=== PATIENT | male | born 1965 | race Caucasian/White ===

== ENCOUNTER 2017-11-06 08:07 | Emergency (ER) | payer BC ==
--- NOTE | 2017-11-06 08:13 | EDM.PDOC ---
ED HPI GENERAL MEDICAL PROBLEM - General Chief Complaint: Abdominal Pain Stated Complaint: BY AMBULANCE Time Seen by Provider: 11/06/17 08:13 Source of Information: Reports: Patient, EMS, EMS Notes Reviewed, RN, RN Notes Reviewed History Limitations: Reports: No Limitations - History of Present Illness INITIAL COMMENTS - FREE TEXT/NARRATIVE: Pt presents to ER per [facility] with c/o abdominal pain. He states last week one of his dogs jumped on his abdomen and he had pain. Today at 0715 one of his dogs, approximately 45#, jumped up and pounced with both paws on the right side of his abdomen. He points in a [place] around the umbilicus when asked where the pain is. He admits to some nausea with the pain. He describes the pain as a "pressure. Onset: Today, Sudden Onset Time: 15:00 Duration: Constant Location: Reports: Abdomen Quality: Reports: Pressure Severity: Moderate Improves with: Reports: Rest Worsens with: Reports: Movement Associated Symptoms: Reports: Nausea/Vomiting Treatments SENIOR MEDICAL BILLING SPECIALIST: Reports: IV/IO Right Upper Abdominal Pain Score (Numeric/FACES): 5 - Related Data Allergies Allergy/AdvReac Type Severity Reaction Status Date / Time meperidine HCl [From Demerol] Allergy Vomiting Verified 11/06/17 08:18 Home Meds: Home Meds Aspirin 81 mg PO DAILY 12/25/13 [History] Escitalopram [Lexapro] 20 mg PO DAILY 12/25/13 [History] Ramipril [Altace] 10 mg PO DAILY 12/10/14 [History] traMADol [Ultram] 50 mg PO BID 11/06/17 [History] Past Medical History Cardiovascular History: Reports: Hypertension Other Gastrointestinal History: Abdominal hernia following appy Other Neuro History: History of seizures in the related to stress None since Psychiatric History: Reports: Depression Social & Family History - Tobacco Use Smoking Status *Q: Never Smoker Second Hand Smoke Exposure: No - Alcohol Use Days Per Week of Alcohol Use: 2 Number of Drinks Per Day: 1 Total Drinks Per Week: 2 - Recreational Drug Use Recreational Drug Use: No - Living Situation & Occupation Living situation: Reports: , with Spouse Occupation: Employed ED ROS GENERAL - Review of Systems Review Of Systems: ROS reveals no pertinent complaints other than HPI. ED EXAM, GI/ABD - Physical Exam Exam: See Below Exam Limited By: No Limitations General Appearance: Alert, WD/WN, Mild Distress Eyes: Bilateral: EOMI Ears: Normal External Exam, Hearing Grossly Normal Nose: Normal Inspection Throat/Mouth: Normal Inspection, Normal Voice, No Airway Compromise Head: Atraumatic, Normocephalic Neck: Normal Inspection, Supple, Non-Tender, Full Range of Motion Respiratory/Chest: No Respiratory Distress, Lungs Clear, Normal Breath Sounds, No Accessory Muscle Use, Chest Non-Tender Cardiovascular: Normal Peripheral Pulses, Regular Rate, Rhythm, No Edema, No Gallop, No JVD, No Murmur, No Rub GI/Abdominal Exam: Normal Bowel Sounds, Soft, No Organomegaly, No Abnormal Bruit , No Mass, Tender (upon palpation RUQ, RLQ) (Male) Exam: Deferred Rectal (Males) Exam: Deferred Back Exam: Normal Inspection, Full Range of Motion Extremities: Normal Inspection, Normal Range of Motion, Non-Tender, No Pedal Edema, Normal Capillary Refill Neurological: Alert, Oriented, Normal Cognition, No Motor/Sensory Deficits Psychiatric: Normal Affect, Normal Mood Skin Exam: Warm, Dry, Intact, Normal Color, No Rash Lymphatic: No Adenopathy Course - Vital Signs Last Recorded V/S: Last Vital Signs Temp 97.8 F 11/06/17 08:27 Pulse 80 11/06/17 08:27 Resp 18 11/06/17 08:27 BP 153/83 H 11/06/17 08:27 Pulse Ox 99 11/06/17 08:27 - Orders/Labs/Meds Orders: Active Orders 24 hr Category Date Time Status UA W/MICROSCOPIC [URIN] Stat Lab 11/06/17 08:39 Uncollected Labs: Laboratory Tests 11/06/17 11/06/17 Range/Units 08:30 08:30 WBC 9.5 (5.0-10.0) 10^3/uL RBC 5.18 (4.6-6.2) 10^6/uL Hgb 15.0 (14.0-18.0) g/dL Hct 45.5 (40.0-54.0) % MCV 87.8 (80-100) fL MCH 29.0 (27.0-34.0) pg MCHC 33.0 (33.0-35.0) g/dL Plt Count 185 (150-450) 10^3/uL Neut % (Auto) 71.7 (42.2-75.2) % Lymph % (Auto) 17.0 L (20.5-50.1) % [place] % (Auto) 9.5 H (2-8) % Eos % (Auto) 1.5 (1.0-3.0) % Baso % (Auto) 0.3 (0.0-1.0) % Sodium 136 (135-145) mmol/L Potassium 4.4 (3.6-5.0) mmol/L Chloride 99 L (101-111) mmol/L Carbon Dioxide 28.0 (21.0-31.0) mmol/L Anion Gap 13.4 BUN 14 (7-18) mg/dL Creatinine 1.1 (0.6-1.3) mg/dL Est Cr Clr Drug Dosing 83.67 mL/min Estimated GFR (MDRD) > 60 BUN/Creatinine Ratio 12.72 Glucose 158 H (74-105) mg/dL Calcium 9.1 (8.4-10.2) mg/dl Total Bilirubin 0.6 (0.2-1.0) mg/dL AST 22 (10-42) IU/L ALT 20 (10-60) IU/L Alkaline Phosphatase 71 (42-121) IU/L Total Protein 7.1 (6.7-8.2) g/dl Albumin 3.8 (3.2-5.5) g/dl Globulin 3.3 Albumin/Globulin Ratio 1.15 Amylase 45 (28-100) U/L Lipase 21 L (22-51) U/L Meds: Medications Discontinued Medications Generic Name Dose Route Start Last Admin Trade Name Vinay PRN Reason Stop Dose Admin Iopamidol 75 ml 11/06/17 10:25 11/06/17 10:28 Isovue-300 (61%) IVPUSH 11/06/17 10:26 75 ml ONETIME ONE Administration Iopamidol 50 ml 11/06/17 10:25 11/06/17 10:28 Isovue-300 (61%) IVPUSH 11/06/17 10:26 50 ml ONETIME ONE Administration - Radiology Interpretation Free Text/Narrative:: Abdomen/Pelvis CT w/ contrast: Bilateral renal cysts and calyceal calcifications. Otherwise negative exam, no sign of trauma See rad report Departure - Departure Time of Disposition: 10:56 Disposition: Home, Self-Care 01 Condition: Fair Clinical Impression: Abdominal pain Qualifiers: Abdominal location: upper abdomen Qualified Code(s): R10.10 - Upper abdominal pain, unspecified - Discharge Information Instructions: Abdominal Pain, Adult, [id number] Forms: ED Department Discharge Additional Instructions: Follow up with your primary care facility regarding renal cysts and further evaluation. Use your prescribed tramadol for pain. - My Orders Last 24 Hours: My Active Orders 11/06/17 08:39 UA W/MICROSCOPIC [URIN] Stat - Assessment/Plan Last 24 Hours: My Active Orders 11/06/17 08:39 UA W/MICROSCOPIC [URIN] Stat
[2017-11-06 08:37] VITALS: BP 153/83
[2017-11-06 08:59] LABS: CHLORIDE,CL 99 mmol/L (101-111); SODIUM,NA 136 mmol/L (135-145)
[2017-11-06] MEDS ORDERED: Iopamidol 612 MG/ML 75 ML Bottle IVPUSH ONE (10:25)
[2017-11-06] MEDS ORDERED: Iopamidol 612 MG/ML 50 ML SDV IVPUSH ONE (10:25)
--- NOTE | 2017-11-06 10:53 | CT ---
Clinical history: 52-year-old 420 pound hypertensive male with diffuse abdominal pain ("hit in belly by 45 pound dog"). Scan technique: Volume acquisition of data from the abdomen and pelvis obtained without oral contrast but during/after intravenous infusion 125 cc nonionic Isovue 300 contrast (3 cc/s via injector) abdullahi e patient was lying supine on the Siemens multislice scanner [place], [place]. All data archived in the PACS system for storage, reformatting axial/sagittal/coronal planes and study. Interpretation: Bilateral renal cysts and calyceal calcifications. Otherwise Negative exam i.e. no si gn of trauma. 1. Morbid obesity (extensive intra and extraperitoneal fat). 2. Homogeneously dense fatty liver is normal size and anatomic configuration without intrahepatic mas s or intra/extra hepatic biliary duct dilatation. 3. Normal gallbladder. Stomach, spleen, pancreas and adrenal glands unremarkable. 4. Isolated tiny lower pole calyx calcification and discrete small 13 mm diameter posterior upper gallo e cortical cyst right kidney; and, midpole calyceal calcification and 2 cm diameter cyst posterior co rtex lower pole contralateral left kidney. No signs of obstructive uropathy. Normal bladder. 5. No ventral wall hernia or contusion. No inflammatory "dirty" peritoneal fat, sign of mechanical mayco wel obstruction, ascites or free intraperitoneal air. No pelvic or abdominal mass lesion and no signs of mesenteric or retroperitoneal lymphadenopathy. 6. Normal cardiac silhouette. Normal caliber aortoiliac vessels. Lung bases clear. Arthritis lumbar s pine.
[2017-11-06] MEDS ORDERED: Ketorolac 30 MG/ML SDV IVPUSH ONE (10:57)
== END 2017-11-06 11:20 | disposition home or self-care (01) ==
LOC: DL.ED 08:07
DX: R10.11 Right upper quadrant pain (principal); I10 Essential (primary) hypertension; F32.9 Major depressive disorder, single episode, unspecified; Z79.82 Long term (current) use of aspirin; Z79.899 Other long term (current) drug therapy; Z88.6 Allergy status to analgesic agent
CPT/HCPCS: 36415; 74177; 80053; 82150; 83690; 85025; 96374; 99285; J1885; Q9967

== ENCOUNTER 2017-12-28 07:36 | Emergency (ER) | payer BC ==
--- NOTE | 2017-12-28 07:41 | EDM.PDOC ---
ED HPI GENERAL MEDICAL PROBLEM - General Stated Complaint: COMING BY AMBULANCE Time Seen by Provider: 12/28/17 07:41 Source of Information: Reports: Patient, EMS, EMS Notes Reviewed, Family, RN, RN Notes Reviewed History Limitations: Reports: No Limitations - History of Present Illness INITIAL COMMENTS - FREE TEXT/NARRATIVE: Pt presents to the ER per [facility] with c/o weakness and body aches. Pt states he has had a cough and sinus congestion since . He states he stayed home from work on Thursday as he was not feeling well. Today after getting up for work he began to have terrible body aches and could not get up from the couch. Patient states some loose stools recently, and some nausea at times, but no vomiting. Patient admits to fever and chills over the weekend. Pt denies chest pain and sob. Onset: Today Duration: Getting Worse Location: Reports: Generalized Quality: Reports: Ache Severity: Moderate Improves with: Reports: None Worsens with: Reports: None Associated Symptoms: Reports: Cough, cough w sputum, Fever/Chills, Malaise, Weakness Generalized Pain Score (Numeric/FACES): 6 - Related Data Allergies Allergy/AdvReac Type Severity Reaction Status Date / Time meperidine HCl [From Demerol] Allergy Vomiting Verified 12/28/17 07:41 Home Meds: Home Meds Aspirin 81 mg PO DAILY 12/25/13 [History] Escitalopram [Lexapro] 20 mg PO DAILY 12/25/13 [History] Ramipril [Altace] 10 mg PO DAILY 12/10/14 [History] traMADol [Ultram] 50 mg PO BID 11/06/17 [History] Past Medical History Cardiovascular History: Reports: Hypertension Other Gastrointestinal History: Abdominal hernia following appy Musculoskeletal History: Reports: Arthritis Other Neuro History: History of seizures in the related to stress None since Psychiatric History: Reports: Depression - Infectious Disease History Infectious Disease History: Reports: Chicken Pox - Past Surgical History Other Musculoskeletal Surgeries/Procedures:: right hip; left hip Social & Family History - Family History Family Medical History: Noncontributory - Tobacco Use Smoking Status *Q: Never Smoker Second Hand Smoke Exposure: No - Caffeine Use Caffeine Use: Reports: Soda - Alcohol Use Days Per Week of Alcohol Use: 2 Number of Drinks Per Day: 1 Total Drinks Per Week: 2 - Recreational Drug Use Recreational Drug Use: No - Living Situation & Occupation Living situation: Reports: , with Spouse Occupation: Employed ED ROS GENERAL - Review of Systems Review Of Systems: ROS reveals no pertinent complaints other than HPI. ED EXAM, GENERAL - Physical Exam Exam: See Below Exam Limited By: No Limitations General Appearance: Alert, WD/WN, Moderate Distress Eye Exam: Bilateral Eye: EOMI, Normal Inspection, PERRL Ears: Normal External Exam, Hearing Grossly Normal Ear Exam: Bilateral Ear: Canal Normal, TM normal Nose: Normal Inspection Throat/Mouth: Normal Inspection, Normal Lips, Normal Teeth, Normal Gums, Normal Oropharynx, Normal Voice, No Airway Compromise Head: Atraumatic, Normocephalic Neck: Normal Inspection, Supple, Non-Tender, Full Range of Motion Respiratory/Chest: No Respiratory Distress, Lungs Clear, No Accessory Muscle Use , Chest Non-Tender, Decreased Breath Sounds Cardiovascular: Normal Peripheral Pulses, Regular Rate, Rhythm, No Edema, No Gallop, No JVD, No Murmur, No Rub Peripheral Pulses: 2+: Radial (L), Radial (R) GI/Abdominal: Normal Bowel Sounds, Soft, Non-Tender, No Organomegaly, No Distention, No Abnormal Bruit, No Mass, Other (very large/obese) (Male) Exam: Deferred Rectal (Males) Exam: Deferred Back Exam: Normal Inspection, Full Range of Motion, NT Extremities: Normal Inspection, Normal Range of Motion, Non-Tender, Normal Capillary Refill, No Pedal Edema Neurological: Alert, Oriented, CN II-XII Intact, Normal Cognition, Normal Gait, Normal Reflexes, No Motor/Sensory Deficits Psychiatric: Anxious Skin Exam: Warm, Dry, Intact, Normal Color, No Rash Lymphatic: No Adenopathy EKG INTERPRETATION EKG Date: 12/28/17 Time: 08:17 Rhythm: NSR Rate (Beats/Min): 70 [place]: Normal P-Wave: Present QRS: Normal ST-T: Normal QT: Normal Comparison: No Change Course - Vital Signs Last Recorded V/S: Last Vital Signs Temp 97.6 F 12/28/17 11:22 Pulse 78 12/28/17 11:22 Resp 16 12/28/17 11:22 BP 132/68 12/28/17 11:22 Pulse Ox 98 12/28/17 11:22 - Orders/Labs/Meds Orders: Active Orders 24 hr Category Date Time Status EKG Documentation Completion [RC] STAT Care 12/28/17 07:50 Active CULTURE SPUTUM + SMEAR [RM] Stat Lab 12/28/17 08:49 Results Labs: Laboratory Tests 12/28/17 12/28/17 12/28/17 Range/Units 07:59 07:59 08:49 WBC 10.9 H (5.0-10.0) 10^3/uL RBC 4.98 (4.6-6.2) 10^6/uL Hgb 14.2 (14.0-18.0) g/dL Hct 44.5 (40.0-54.0) % MCV 89.4 (80-100) fL MCH 28.5 (27.0-34.0) pg MCHC 31.9 L (33.0-35.0) g/dL Plt Count 159 (150-450) 10^3/uL Neut % (Auto) 70.2 (42.2-75.2) % Lymph % (Auto) 16.2 L (20.5-50.1) % [place] % (Auto) 10.4 H (2-8) % Eos % (Auto) 2.9 (1.0-3.0) % Baso % (Auto) 0.3 (0.0-1.0) % Sodium 138 (135-145) mmol/L Potassium 4.8 (3.6-5.0) mmol/L Chloride 101 (101-111) mmol/L Carbon Dioxide 31.0 (21.0-31.0) mmol/L Anion Gap 10.8 BUN 14 (7-18) mg/dL Creatinine 1.1 (0.6-1.3) mg/dL Est Cr Clr Drug Dosing 83.67 mL/min Estimated GFR (MDRD) > 60 BUN/Creatinine Ratio 12.72 Glucose 154 H (74-105) mg/dL Calcium 8.5 (8.4-10.2) mg/dl Total Bilirubin 0.6 (0.2-1.0) mg/dL AST 21 (10-42) IU/L ALT 19 (10-60) IU/L Alkaline Phosphatase 76 (42-121) IU/L Troponin I < 0.02 (0.00-0.02) ng/ml Total Protein 6.4 L (6.7-8.2) g/dl Albumin 3.6 (3.2-5.5) g/dl Globulin 2.8 Albumin/Globulin Ratio 1.29 Urine Color Yellow (YELLOW) Urine Appearance Clear (CLEAR) Urine pH 6.0 (5.0-9.0) Ur Specific [place] 1.015 (1.005-1.030) Urine Protein Negative (NEGATIVE) Urine Glucose (UA) Negative (NEGATIVE) Urine Ketones Negative (NEGATIVE) Urine Occult Blood Negative (NEGATIVE) Urine Nitrite Negative (NEGATIVE) Urine Bilirubin Negative (NEGATIVE) Urine Urobilinogen 0.2 (0.2-1.0) mg/dL Ur Leukocyte Esterase Negative (NEGATIVE) Urine RBC Not seen /HPF Urine WBC 0-5 (0-5/HPF) /HPF Ur Epithelial Cells Rare /HPF Urine Bacteria Not seen (0-FEW/HPF) /HPF Urine Mucus Not seen /LPF Influenza A & B: Negative Meds: Medications Discontinued Medications Generic Name Dose Route Start Last Admin Trade Name Freq PRN Reason Stop Dose Admin Ketorolac Tromethamine 30 mg 12/28/17 08:51 12/28/17 08:58 Toradol IVPUSH 12/28/17 08:52 30 mg ONETIME ONE Administration Morphine Sulfate 2 mg 12/28/17 10:18 12/28/17 10:22 Morphine IVPUSH 12/28/17 10:19 2 mg ONETIME ONE Administration - Radiology Interpretation Free Text/Narrative:: Chest xray: No acute findings Departure - Departure Time of Disposition: 09:16 Disposition: Home, Self-Care 01 Condition: Fair Clinical Impression: Upper respiratory infection, viral - Discharge Information Instructions: Upper Respiratory Infection, Adult, [id number] Referrals: Gita Andrews MASS COMMUNICATIONS INSTRUCTOR [Primary Care Provider] - Forms: ED Department Discharge Additional Instructions: Drink plenty of fluids Follow up with your primary care facility this week Ibuprofen and or tylenol as directed for pain Rest - My Orders Last 24 Hours: My Active Orders 12/28/17 07:50 EKG Documentation Completion [RC] STAT 12/28/17 08:49 CULTURE SPUTUM + SMEAR [RM] Stat - Assessment/Plan Last 24 Hours: My Active Orders 12/28/17 07:50 EKG Documentation Completion [RC] STAT 12/28/17 08:49 CULTURE SPUTUM + SMEAR [RM] Stat
[2017-12-28 08:34] LABS: ANION GAP 10.8; CHLORIDE,CL 101 mmol/L (101-111); SODIUM,NA 138 mmol/L (135-145)
[2017-12-28] MEDS ORDERED: Ketorolac 30 MG/ML SDV IVPUSH ONE (08:51)
[2017-12-28] MEDS ORDERED: Morphine 2 MG/ML Syringe IVPUSH ONE (10:18)
[2017-12-28 11:23] VITALS: BP 132/68
--- NOTE | 2017-12-30 12:53 | EKG ---
12/28/2017- ILIR FARR - EKG done on a 52-year-old male, showing sinus rhythm with normal axis, heart rate of 70 beats per minute. Normal intervals. No acute ST-T wave changes. [facility] /[id number]
== END 2017-12-28 11:24 | disposition home or self-care (01) ==
LOC: DL.ED 07:36
DX: J06.9 Acute upper respiratory infection, unspecified (principal); I10 Essential (primary) hypertension; F32.9 Major depressive disorder, single episode, unspecified; Z79.82 Long term (current) use of aspirin; Z79.899 Other long term (current) drug therapy; Z88.6 Allergy status to analgesic agent
CPT/HCPCS: 36415; 71046; 80053; 81001; 84484; 85025; 87070; 87205; 87804; 93005; 96374; 96375; 99284; J1885; J2270

== ENCOUNTER 2018-11-28 15:23 | Emergency (ER) | payer OTHER, BC ==
[2018-11-28 15:56] VITALS: BP 181/87
--- NOTE | 2018-11-28 16:17 | EDM.PDOC ---
ED HPI GENERAL MEDICAL PROBLEM - General Chief Complaint: Lower Extremity Injury/Pain Stated Complaint: FELL [id number] Time Seen by Provider: 11/28/18 15:55 Source of Information: Reports: Patient, RN, RN Notes Reviewed History Limitations: Reports: No Limitations - History of Present Illness INITIAL COMMENTS - FREE TEXT/NARRATIVE: Pt c/o left anterior knee pain sustained today at work when he slipped and fell on a wet floor. Denies any other injury. Onset: Today Duration: Constant Location: Reports: Lower Extremity, Left Quality: Reports: Ache Severity: Moderate Improves with: Reports: Immobilization Worsens with: Reports: Movement Associated Symptoms: Reports: No Other Symptoms Left Knee Pain Score (Numeric/FACES): 9 - Related Data Allergies Allergy/AdvReac Type Severity Reaction Status Date / Time meperidine HCl [From Demerol] Allergy Vomiting Verified 11/28/18 15:56 Home Meds: Home Meds Aspirin 81 mg PO DAILY 12/25/13 [History] Escitalopram [Lexapro] 20 mg PO DAILY PRN 12/25/13 [History] Ramipril [Altace] 10 mg PO DAILY 12/10/14 [History] Past Medical History Cardiovascular History: Reports: Hypertension Other Gastrointestinal History: Abdominal hernia following appy Musculoskeletal History: Reports: Arthritis Neurological History: Reports: Seizure Other Neuro History: History of seizures in the related to stress None since Psychiatric History: Reports: Depression Endocrine/Metabolic History: Reports: Diabetes, Type II, Obesity/BMI 30+ - Infectious Disease History Infectious Disease History: Reports: Chicken Pox - Past Surgical History GI Surgical History: Reports: Appendectomy, Hernia Repair/Other Musculoskeletal Surgical History: Reports: Hip Replacement, Knee Replacement Other Musculoskeletal Surgeries/Procedures:: right hip; left hip Social & Family History - Family History Family Medical History: Noncontributory - Tobacco Use Smoking Status *Q: Never Smoker Second Hand Smoke Exposure: No - Caffeine Use Caffeine Use: Reports: Soda - Living Situation & Occupation Living situation: Reports: , with Spouse Occupation: Employed Review of Systems - Review of Systems Review Of Systems: ROS reveals no pertinent complaints other than HPI. ED EXAM, GENERAL - Physical Exam Exam: See Below Exam Limited By: No Limitations General Appearance: Alert, WD/WN, No Apparent Distress Head: Atraumatic, Normocephalic Neck: Normal Inspection, Full Range of Motion Respiratory/Chest: No Respiratory Distress Back Exam: Normal Inspection Extremities: Normal Capillary Refill, Joint Swelling (Left knee), Limited Range of Motion (Left knee with patella displaced laterally with soft tissue swelling , skin is intact.) Neurological: Alert, Oriented Psychiatric: Normal Mood Skin Exam: Warm, Dry, Intact ED TRAUMA EXTREMITY PROCEDURES - Joint Reduction Site: Patella (L) Sedation: Other (none) Pre-Procedure NV Status: Normal Post-Procedure NV Status: Normal Technique: Other (kelsy closed reduction) Number of Attempts: 1 Post-Reduction Imaging: Completely Reduced Joint Reduction Complications: No Course - Vital Signs Last Recorded V/S: Last Vital Signs Temp 36.9 C 11/28/18 15:41 Pulse 81 11/28/18 15:41 Resp 16 11/28/18 15:41 BP 181/87 H 11/28/18 15:41 Pulse Ox 97 11/28/18 15:41 - Radiology Interpretation Free Text/Narrative:: [facility] Final Radiology Report Call: [phone] assistance Online chat: [email or web address] Name: ILIR FARR Age: 53Years M Date: 11/28/2018 SSN: -- : 1965 Study: XR KNEE 3 VIEWS Requesting Physician: DEWAYNE VALDIVIA Images: 3 Addl Studies: Provided Clinical History: Contrast: Contrast Medium: Contrast Amount: Contrast Method: CONFIDENTIALITY STATEMENT This report is intended only for use by the referring physician, and only in accordance with law. If you received this in error, call [phone]. Page 1 of 1 EXAM: XR Left Knee, 3 Views EXAM DATE/TIME: 11/28/2018 3:48 PM CLINICAL HISTORY: 53 years old, male; Signs and symptoms; Other: Fall/pain; Prior surgery; Surgery date: 6+ months; Surgery type: Knee replacement TECHNIQUE: XR Left knee 3 views. COMPARISON: No relevant prior studies available. FINDINGS: Bones/joints: There has been a left knee arthroplasty with patellar resurfacing. There is lateral subluxation of the patella. Prepatellar soft tissue swelling and joint effusion present. Soft tissues: Normal. IMPRESSION: 1. There has been a left knee arthroplasty with patellar resurfacing. 2. There is lateral subluxation of the patella. Thank you for allowing us to participate in the care of your patient. Dictated and Authenticated by: Gerard Nolasco DO 11/28/2018 4:08 PM Central Time ([place] & [place]) - Re-Assessments/Exams Free Text/Narrative Re-Assessment/Exam: Pt is too large for knee immobilizer and is over the wt limit for the crutches stocked in the ER. Departure - Departure Time of Disposition: 16:44 Disposition: Home, Self-Care 01 Condition: Good Clinical Impression: Lateral subluxation of left patella, initial encounter, Work related injury - Discharge Information *PRESCRIPTION DRUG MONITORING PROGRAM REVIEWED*: Not Applicable *COPY OF PRESCRIPTION DRUG MONITORING REPORT IN PATIENT BOUCHRA: Not Applicable Instructions: Patellar Dislocation and Subluxation Forms: ED Department Discharge Additional Instructions: Wear PATIENCE wrap on left knee and use walker. Follow up in clinic in 3 to 5 days for recheck. Return to ER if the knee cap slides back out of place. May use Acetaminophen 500mg: One or two tablets by mouth every 4 to 6 hours as needed for pain. Do not exceed 2500mg in 24 hours.
== END 2018-11-28 16:52 | disposition home or self-care (01) ==
LOC: DL.ED 15:23
DX: W01.0XXA Fall on same level from slipping, tripping and stumbling without subsequent striking against object, initial encounter (principal); Z88.8 Allergy status to other drugs, medicaments and biological substances; Z79.899 Other long term (current) drug therapy; Z79.82 Long term (current) use of aspirin; E11.9 Type 2 diabetes mellitus without complications
CPT/HCPCS: 27560; 73562-LT; 99283

== ENCOUNTER 2020-04-15 09:58 | Emergency (ER) | payer SELFPAY ==
[2020-04-15 10:04] VITALS: BP 141/81; PULSE 85
[2020-04-15] MEDS ORDERED: Sodium Chloride 0.9% 1,000 ML IV ONE (10:28)
--- NOTE | 2020-04-15 10:36 | EDM.PDOC ---
"ED HPI GENERAL MEDICAL PROBLEM - General Chief Complaint: Flank Pain Stated Complaint: POSSIBLE KIDNEY STONE Time Seen by Provider: 04/15/20 10:15 Source of Information: Reports: Patient History Limitations: Reports: No Limitations - History of Present Illness INITIAL COMMENTS - FREE TEXT/NARRATIVE: This 55 yo male patient reports to the ED with right flank pain that began this morning. The patient reports his pain has decreased at this time, but he continues to have discomfort. The patient reports a history of kidney stones with similar symptoms. The patient reports he has been drinking fluids. The patient does take Tramadol for chronic pain. The patient reports he has had his appendix removed in the past. Onset: Today Duration: Hour(s):, Constant Location: Reports: Back (right flank) Quality: Reports: Ache, Sharp Severity: Moderate Improves with: Reports: None Worsens with: Reports: None Context: Reports: Other Associated Symptoms: Reports: No Other Symptoms Right Flank Pain Score (Numeric/FACES): 8 - Related Data Allergies Allergy/AdvReac Type Severity Reaction Status Date / Time meperidine HCl [From Demerol] Allergy Vomiting Verified 04/15/20 10:04 Home Meds: Home Meds Escitalopram [Lexapro] 20 mg PO DAILY PRN 12/25/13 [History] ramipriL [Altace] 10 mg PO DAILY 12/10/14 [History] Ibuprofen 100 mg PO BID 04/15/20 [History] allopurinoL [Zyloprim] 300 mg PO DAILY 04/15/20 [History] metFORMIN [Glucophage] 1,000 mg PO BIDMEALS 04/15/20 [History] traMADol [Ultram] 50 mg PO BID PRN 04/15/20 [History] Past Medical History HEENT History: Reports: Impaired Vision Cardiovascular History: Reports: Hypertension Other Gastrointestinal History: Abdominal hernia following appy Genitourinary History: Reports: Renal Calculus Musculoskeletal History: Reports: Arthritis Neurological History: Reports: Seizure Other Neuro History: History of seizures in the related to stress None since Psychiatric History: Reports: Depression Endocrine/Metabolic History: Reports: Diabetes, Type II, Obesity/BMI 30+ - Infectious Disease History Infectious Disease History: Reports: Chicken Pox - Past Surgical History GI Surgical History: Reports: Appendectomy, Hernia Repair/Other Musculoskeletal Surgical History: Reports: Hip Replacement, Knee Replacement, Shoulder Replacement Other Musculoskeletal Surgeries/Procedures:: right hip; left hip Social & Family History - Family History Family Medical History: Noncontributory - Tobacco Use Smoking Status *Q: Never Smoker - Caffeine Use Caffeine Use: Reports: None - Recreational Drug Use Recreational Drug Use: No - Living Situation & Occupation Living situation: Reports: , with Spouse Occupation: Employed ED ROS GENERAL - Review of Systems Review Of Systems: Comprehensive ROS is negative, except as noted in HPI. ED EXAM, RENAL/ - Physical Exam Exam: See Below Exam Limited By: No Limitations General Appearance: Alert, WD/WN, Mild Distress, Obese Eye Exam: Bilateral Eye: EOMI, Normal Inspection, PERRL Ears: Normal External Exam, Normal Canal, Hearing Grossly Normal, Normal TMs Nose: Normal Inspection, Normal Mucosa, No Blood Throat/Mouth: Normal Inspection, Normal Lips, Normal Teeth, Normal Gums, Normal Oropharynx, Normal Voice, No Airway Compromise Head: Atraumatic, Normocephalic Neck: Normal Inspection, Supple, Non-Tender, Full Range of Motion Respiratory/Chest: No Respiratory Distress, Lungs Clear, Normal Breath Sounds, No Accessory Muscle Use, Chest Non-Tender Cardiovascular: Normal Peripheral Pulses, Regular Rate, Rhythm, No Edema, No Gallop, No JVD, No Murmur, No Rub GI/Abdominal: Normal Bowel Sounds, Soft, Non-Tender, No Organomegaly, No Distention, No Abnormal Bruit, No Mass, Other (obese) (Male) Exam: Deferred Rectal (Males) Exam: Deferred Back Exam: Normal Inspection, Full Range of Motion, CVA Tenderness (R) Extremities: Normal Inspection, Normal Range of Motion, Non-Tender, Normal Capillary Refill, No Pedal Edema Neurological: Alert, Oriented, CN II-XII Intact, Normal Cognition, Normal Gait, Normal Reflexes, No Motor/Sensory Deficits Psychiatric: Normal Affect, Normal Mood Skin Exam: Warm, Dry, Intact, Normal Color, No Rash Course - Vital Signs Last Recorded V/S: Last Vital Signs Temp 36.0 C L 04/15/20 10:01 Pulse 85 04/15/20 10:01 Resp 22 H 04/15/20 10:01 BP 141/81 H 04/15/20 10:01 Pulse Ox 99 04/15/20 10:01 - Orders/Labs/Meds Orders: Active Orders 24 hr Category Date Time Status Abdomen Pelvis wo Cont [CT] Urgent Exams 04/15/20 10:28 Ordered CULTURE URINE [RM] Stat Lab 04/15/20 10:13 Received Sodium Chloride 0.9% [Normal Saline] 1,000 ml Med 04/15/20 10:28 Ordered IV .BOLUS Medication Orders Sodium Chloride (Normal Saline) 1,000 mls @ 999 mls/hr IV .BOLUS ONE Stop: 04/15/20 11:28 Last Admin: 04/15/20 10:35 Dose: 999 mls/hr Labs: Laboratory Tests 04/15/20 04/15/20 Range/Units 10:13 10:13 Urine Color Yellow (YELLOW) Urine Appearance Clear (CLEAR) Urine pH 5.5 (5.0-9.0) Ur Specific [place] >= 1.030 (1.005-1.030) Urine Protein Negative (NEGATIVE) Urine Glucose (UA) Negative (NEGATIVE) Urine Ketones Negative (NEGATIVE) Urine Occult Blood Moderate H (NEGATIVE) Urine Nitrite Negative (NEGATIVE) Urine Bilirubin Negative (NEGATIVE) Urine Urobilinogen 0.2 (0.2-1.0) mg/dL Ur Leukocyte Esterase Trace H (NEGATIVE) Urine RBC 10-20 H /HPF Urine WBC 0-5 (0-5/HPF) /HPF Ur Epithelial Cells Moderate H (NOT SEEN) /HPF Urine Bacteria Few (0-FEW/HPF) /HPF Urine Mucus Moderate H (NOT SEEN) /LPF Urine Opiates Screen Negative (NEGATIVE) Ur Oxycodone Screen Negative (NEGATIVE) Urine Methadone Screen Negative (NEGATIVE) Ur Barbiturates Screen Negative (NEGATIVE) U Tricyclic Antidepress Negative (NEGATIVE) Ur Phencyclidine Scrn Negative (NEGATIVE) Ur Amphetamine Screen Negative (NEGATIVE) U Methamphetamines Scrn Negative (NEGATIVE) Urine MDMA Screen Negative (NEGATIVE) U Benzodiazepines Scrn Negative (NEGATIVE) Urine Cocaine Screen Negative (NEGATIVE) U Marijuana (THC) Screen Negative (NEGATIVE) Meds: Medications Generic Name Dose Route Start Last Admin Trade Name Freq PRN Reason Stop Dose Admin Sodium Chloride 1,000 mls @ 999 mls/hr 04/15/20 10:28 04/15/20 10:35 Normal Saline IV 04/15/20 11:28 999 mls/hr .BOLUS ONE Administration - Radiology Interpretation Free Text/Narrative:: PROCEDURE INFORMATION: Exam: CT Abdomen And Pelvis Without Contrast Exam date and time: 04/15/2020 10:44 AM Age: 55 years old Clinical indication: Abdominal pain; Flank; Right TECHNIQUE: Imaging protocol: Computed tomography of the abdomen and pelvis without contrast. Radiation optimization: All CT scans at this facility use at least one of these dose optimization techniques: automated exposure control; mA and/or kV adjustment per patient size (includes targeted exams where dose is matched to clinical indication); or iterative reconstruction. COMPARISON: CT Abdomen Pelvis w Cont 11/06/2017 10:04 AM FINDINGS: Liver: Normal. No mass. Gallbladder and bile ducts: Normal. No calcified stones. No ductal dilation. Pancreas: Normal. No ductal dilation. Spleen: Normal. No splenomegaly. Adrenals: Normal. No mass. Kidneys and ureters: Bilateral intrarenal calculi. Mild right perinephric stranding and hydronephrosis secondary to a 2 mm calculus located in the right bladder base compatible with a recently passed ureteral stone. Stomach and bowel: Unremarkable. No obstruction. No mucosal thickening. Appendix: No evidence of appendicitis. Intraperitoneal space: Unremarkable. No free air. No significant fluid collection. Vasculature: Unremarkable. No abdominal aortic aneurysm. Lymph nodes: Unremarkable. No enlarged lymph nodes. Bladder: Unremarkable as visualized. IL[facility] FARR | Final Radiology Report CONFIDENTIALITY STATEMENT This report is intended only for use by the referring physician, and only in accordance with law. If you received this in error, call [phone]. Page 2 of 2 Reproductive: Unremarkable as visualized. Bones/joints: Right hip replacement. Soft tissues: Unremarkable. IMPRESSION: Bilateral intrarenal calculi. Mild right perinephric stranding and hydronephrosis secondary to a 2 mm calculus located in the right bladder base compatible with a recently passed ureteral stone. Remainder of findings as described above. Thank you for allowing us to participate in the care of your patient. Dictated and Authenticated by: Chayito Zaragoza MD 04/15/2020 11:15 AM Central Time ([place] & [place]) Departure - Departure Time of Disposition: 11:17 Disposition: Home, Self-Care 01 Condition: Fair Clinical Impression: Kidney stone on right side - Discharge Information *PRESCRIPTION DRUG MONITORING PROGRAM REVIEWED*: Not Applicable *COPY OF PRESCRIPTION DRUG MONITORING REPORT IN PATIENT BOUCHRA: Not Applicable Instructions: Kidney Stones, [id number] Forms: ED Department Discharge Care Plan Goals: The patient was advised of the examination, lab and CT results during the visit. The patient was advised that he has passed a kidney stone into his bladder. The patient should continue to increase oral fluid intake. If the patient has any additional symptoms or concerns, the patient should either return to the emergency department or visit his primary care facility. Sepsis Event Note - Evaluation Sepsis Screening Result: No Definite Risk - Focused Exam Vital Signs: Vital Signs Temp Pulse Resp BP Pulse Ox 04/15/20 10:01 36.0 C L 85 22 H 141/81 H 99 Date Exam was Performed: 04/15/20 Time Exam was Performed: 11:19 - My Orders Last 24 Hours: My Active Orders 04/15/20 10:13 CULTURE URINE [RM] Stat 04/15/20 10:28 Abdomen Pelvis wo Cont [CT] Urgent Sodium Chloride 0.9% [Normal Saline] 1,000 ml IV .BOLUS - Assessment/Plan Last 24 Hours: My Active Orders 04/15/20 10:13 CULTURE URINE [RM] Stat 04/15/20 10:28 Abdomen Pelvis wo Cont [CT] Urgent Sodium Chloride 0.9% [Normal Saline] 1,000 ml IV .BOLUS"
== END 2020-04-15 11:21 | disposition home or self-care (01) ==
LOC: DL.ED 09:58
DX: N13.2 Hydronephrosis with renal and ureteral calculous obstruction (principal); I10 Essential (primary) hypertension; E11.9 Type 2 diabetes mellitus without complications; F32.9 Major depressive disorder, single episode, unspecified; M19.90 Unspecified osteoarthritis, unspecified site; E66.9 Obesity, unspecified; Z68.42 Body mass index [BMI] 45.0-49.9, adult; Z90.49 Acquired absence of other specified parts of digestive tract; Z88.8 Allergy status to other drugs, medicaments and biological substances; Z79.899 Other long term (current) drug therapy; Z79.84 Long term (current) use of oral hypoglycemic drugs
CPT/HCPCS: 74176; 80305; 81001; 87086; 99284; J7030

== ENCOUNTER 2022-08-05 15:16 | Emergency (ER) | payer MEDICAID, OTHER ==
[2022-08-05] MEDS ORDERED: Ondansetron 4 MG Tab.DIS PO ONE (15:17)
[2022-08-05] MEDS ORDERED: Ketorolac 10 MG Tab PO ONE (15:17)
[2022-08-05 16:50] VITALS: BP 154/99; PULSE 75
[2022-08-05] MEDS ORDERED: Ketorolac 30 MG/ML SDV IVPUSH ONE (17:02)
[2022-08-05] MEDS ORDERED: Ondansetron 4 MG/2 ML SDV IVPUSH ONE (17:02)
[2022-08-05] MEDS ORDERED: Sodium Chloride 0.9% 1,000 ML IV ONE (17:02)
[2022-08-05 17:56] LABS: ANION GAP 9.2 mEq/L (7-13); CHLORIDE,CL 101 mmol/L (98-107); SODIUM,NA 139 mmol/L (136-145)
[2022-08-05 18:05] LABS: ESTIMATED GFR 53 mL/min (>=60)
[2022-08-05] MEDS ORDERED: Tamsulosin 0.4 MG Cap.ER PO ONE (18:23)
[2022-08-05] MEDS ORDERED: Ondansetron 4 MG Tab.DIS ONE (18:49)
[2022-08-05] MEDS ORDERED: Ketorolac 10 MG Tab ONE (18:50)
== END 2022-08-05 19:03 | disposition home or self-care (01) ==
LOC: DL.ED 15:16
DX: N13.2 Hydronephrosis with renal and ureteral calculous obstruction (principal); K76.0 Fatty (change of) liver, not elsewhere classified; I10 Essential (primary) hypertension; E11.9 Type 2 diabetes mellitus without complications; E66.9 Obesity, unspecified; Z88.5 Allergy status to narcotic agent; Z79.84 Long term (current) use of oral hypoglycemic drugs; Z68.43 Body mass index [BMI] 50.0-59.9, adult
CPT/HCPCS: 36415; 74176; 80053; 81001; 83605; 85025; 86140; 87086; 96361; 96374; 96375; 99284; 99284-25; A9270-GY; J1885; J2405; J7030

== ENCOUNTER 2023-01-31 10:35 | Emergency (ER) | payer BC, OTHER ==
[~2023-01-31 10:35] MED LIST: Sodium Chloride 0.9% 10 ML Syringe FLUSH PRN
[2023-01-31 11:06] VITALS: BP 142/85; PULSE 83
[2023-01-31] MEDS ORDERED: Aspirin 81 MG Tab.Chew PO ONE (11:10)
[2023-01-31] MEDS ORDERED: Clopidogrel 75 MG Tab PO ONE (11:10)
[2023-01-31] MEDS ORDERED: Iopamidol 612 MG/ML 100 ML Bottle IVPUSH ONE (11:11)
[2023-01-31 11:13] LABS: ANION GAP 12.9 mEq/L (7-13); CHLORIDE,CL 100 mmol/L (98-107); ESTIMATED GFR 46 mL/min (>=60); SODIUM,NA 137 mmol/L (136-145)
[2023-01-31 11:16] LABS: PTT,PARTIAL THROMBOPLSTIN TIME 26.3 SEC (22.0-34.0)
[2023-01-31] MEDS ORDERED: Tenecteplase 50 MG Kit IV ONE (11:21)
[2023-01-31] MEDS ORDERED: Sodium Chloride 0.9% 1,000 ML IV SCH (11:45)
[2023-01-31 12:22] LABS: CORONAVIRUS COVID-19 NAA NEGATIVE (NEGATIVE); RESPIRATORY SYNCYTIAL VIR NAA NEGATIVE (NEGATIVE)
== END 2023-01-31 14:00 ==
LOC: DL.ED 10:35
DX: I63.9 Cerebral infarction, unspecified (principal); I10 Essential (primary) hypertension; E11.9 Type 2 diabetes mellitus without complications; E66.9 Obesity, unspecified; Z68.43 Body mass index [BMI] 50.0-59.9, adult; Z79.84 Long term (current) use of oral hypoglycemic drugs; Z79.899 Other long term (current) drug therapy; Z88.5 Allergy status to narcotic agent; Z20.822 Contact with and (suspected) exposure to COVID-19
CPT/HCPCS: 0241U; 36415; 70450; 80053; 80307; 82947; 83735; 84484; 85025; 85610; 85730; 93005; 93010; 96361; 96374; 99285; 99285-25; J3101; J7030

== ENCOUNTER 2025-03-02 13:36 | Emergency (ER) | payer MEDICARE ==
[2025-03-02] MEDS ORDERED: Sodium Chloride 0.9% 10 ML Syringe FLUSH PRN (15:31)
[2025-03-02 15:44] LABS: BASOPHILS PERCENT AUTO 0.2 % (0.0-1.0); EOSINOPHILS PERCENT AUTO 0.1 % (1.0-3.0); HEMATOCRIT 39.7 % (40.0-54.0); HEMOGLOBIN 12.9 g/dL (14.0-18.0); LYMPHOCYTES PERCENT AUTO 8.5 % (20.5-50.1); MEAN CORPUSCULAR HEMOGLOBIN 28.9 pg (27.0-34.0); MEAN CORPUSCULAR HGB CONC 32.5 g/dL (33.0-35.0); MONOCYTES PERCENT AUTO 8.6 % (2-8); NEUTROPHILS PERCENT AUTO 82.6 % (42.2-75.2); PLATELET COUNT,PLT 234 10^3/uL (150-450); RED BLOOD CELL COUNT 4.46 10^6/uL (4.6-6.2); WHITE BLOOD CELL COUNT,WBC 13.6 10^3/uL (5.0-10.0)
[2025-03-02] MEDS: Sodium Chloride 0.9% 1,000 ML IV ONE ×2 (15:45→16:20)
[2025-03-02 16:01] LABS: ANION GAP 15.6 mEq/L (7-13); C-REACTIVE PROTEIN 17.84 ng/dL (<=0.50); CALCIUM 9.3 mg/dL (8.5-10.1); CREATININE 2.42 mg/dL (0.70-1.30); EST CRCL DRUG DOSING (CG) 35.01 mL/min; POTASSIUM,K 4.6 mmol/L (3.5-5.1)
[2025-03-02 16:40] LABS: APPEARANCE,URINE SLIGHTLY CLOUDY (CLEAR); BILIRUBIN,URINE NEGATIVE (NEGATIVE); COLOR,URINE YELLOW (YELLOW); GLUCOSE,URINE NEGATIVE (NEGATIVE); KETONES,URINE NEGATIVE (NEGATIVE); LEUKOCYTE ESTERASE,URINE MODERATE (NEGATIVE); NITRITE,URINE NEGATIVE (NEGATIVE); OCCULT BLOOD,URINE TRACE-INTACT (NEGATIVE); PH,URINE 5.5 (5.0-9.0); PROTEIN,URINE 30 (NEGATIVE); UROBILINOGEN,URINE 0.2 mg/dL (0.2-1.0)
[2025-03-02 17:03] LABS: BACTERIA,URINE MODERATE /HPF (0-FEW/HPF); EPITHELIAL CELLS,URINE FEW /HPF (NOT SEEN); RBC,URINE 0-5 /HPF (0-5); WBC,URINE 50-75 /HPF (0-5/HPF)
[2025-03-02] MEDS: cefTRIAXone 2 GM Vial IVPUSH ONE (17:15)
[2025-03-02 17:31] VITALS: BP 120/75; PULSE 87
== END 2025-03-02 18:40 ==
LOC: DL.ED 13:36
DX: N13.2 Hydronephrosis with renal and ureteral calculous obstruction (principal); N30.01 Acute cystitis with hematuria; N17.9 Acute kidney failure, unspecified; I10 Essential (primary) hypertension; E11.9 Type 2 diabetes mellitus without complications; F17.210 Nicotine dependence, cigarettes, uncomplicated; Z88.8 Allergy status to other drugs, medicaments and biological substances; Z79.899 Other long term (current) drug therapy; Z79.84 Long term (current) use of oral hypoglycemic drugs
CPT/HCPCS: 36415; 74176; 80048; 81001; 85025; 86140; 87086; 96361; 96374; 99284; J0696; J7030; 87088; 87186